=== PATIENT | male | born 1980 | race Caucasian/White ===

== ENCOUNTER 2024-11-20 16:28 | Emergency (ER) | payer BC, SELFPAY ==
[2024-11-20 16:29] VITALS: BMI 25.9
[2024-11-20 16:38] VITALS: BP 142/91
[2024-11-20 17:00] LABS: % Basophils 0.5 % (0-2); % Eosinophils 1.6 % (0-6); % Immature Granulocytes 0.2 % (0-0.5); % Lymphocytes 13.8 % (20.5-51.1); % Monocytes 9.3 % (1.7-9.3); % Neutrophils 74.6 % (42.2-75.2); Absolute Eosinophils 0.1 10^3/uL (0-0.7); Absolute Lymphocytes 0.8 10^3/uL (1.2-3.4); Absolute Monocytes 0.5 10^3/uL (0.1-0.6); Absolute Neutrophils 4.3 10^3/uL (1.4-6.5); Hematocrit 44.2 % (39.0-52.0); Hemoglobin 14.6 g/dL (13.0-18.0); Mean Corpuscular Hgb 29.3 pg (27.0-31.0); Mean Corpuscular Volume 88.6 fL (80.0-94.0); Mean Platelet Volume 9.8 fL (7.4-10.4); Nucleated Red Blood Cells % 0 % (-); Platelet Count 241 10^3/uL (130-400); Red Blood Cell Count 4.99 10^6/uL (4.70-6.10); Red Cell Dist. Width 12.7 % (11.5-14.5); White Blood Cell Count 5.7 10^3/uL (4.8-10.8)
[2024-11-20 17:00] LABS: Urine Albumin Trace (Neg - Trace); Urine Bilirubin Negative (Negative); Urine Character Clear (Clear); Urine Color Yellow; Urine Glucose Negative (Negative); Urine Ketone Negative (Negative); Urine Leukocyte Negative (Negative); Urine Nitrite Negative (Negative); Urine Occult Blood 4+ (Negative); Urine Specific Gravity 1.025 (<1.030); Urine Urobilinogen Negative (Neg - 1+)
[2024-11-20 17:10] LABS: Urine Mucus Moderate; Urine Squamous Cell 0-2 /LPF (Few)
[2024-11-20 17:11] LABS: Urine Bacteria Few (Negative); Urine Red Blood Cell 50-60 /HPF (0-2); Urine White Cell 0-2 /HPF (0-5)
[2024-11-20 17:16] LABS: ALT (SGPT) 27 U/L (0-50); AST (SGOT) 27 U/L (17-59); Albumin 4.3 g/dl (3.5-5.0); Alkaline Phosphatase 76 U/L (38-126); Blood Urea Nitrogen 24 mg/dl (9-20); Calcium 9.2 mg/dl (8.4-10.2); Carbon Dioxide 27 mmol/L (22-30); Chloride 102 mmol/L (98-107); Glucose 133 mg/dl (70-99); Lipase 48 U/L (23-300); Potassium 5.2 mmol/L (3.5-5.1); Sodium 138 mmol/L (135-145); Total Bilirubin 0.5 mg/dl (0.2-1.3); Total Protein 6.8 g/dl (6.3-8.2); eGFR > 60.00
[2024-11-20 18:14] VITALS: BP 126/80
[2024-11-20 20:17] VITALS: BP 139/78
--- NOTE | 2024-11-20 20:45 | ED.GENMED ---
History of Present Illness
General
Chief Complaint: Abdominal Pain
Source: patient
Exam Limitations: none
Time Seen by Provider: 11/20/24 17:58
Nursing documentation reviewed up to this point in time: agreed with
History of Present Illness
History of Present Illness:
Patient to ED with complaint of abdominal pain. States pain started suddently this afternoon. Reports right abd. pain with radiation to groin. States pain came in waves and increasing intensity. Noted difficulty urinating. Brought self to ED
but states pain has since subsided. Denies fever/chills. +nausea, no vomiting or diarrhea. No prior history of saem.
Past History
Past History
ED Past Medical History: IDDM
ED Past Surgical History: Other (Myringotomy tubes/wisdom teeth)
Social History
Tobacco: Non-smoker
Personal:
Living: with family
Employment: Employed
Family History
Family History: Other (Noncontributory)
Review of Systems
Review of Systems
Allergies reviewed?: Yes
All Other Systems: ROS reviewed and negative except as documented in HPI and ROS
Constitutional: Reports no symptoms
EENT: Reports no symptoms
Respiratory: Reports no symptoms
Cardiac: Reports no symptoms
ABD/GI: Reports abdominal pain
: Reports difficulty voiding
Musculoskeletal: Reports no symptoms
Skin: Reports no symptoms
Neurological: Reports no symptoms
Psychiatric: Reports no symptoms
Phy Exam
General Physical Exam
General Presentation: well appearing and no apparent distress
General age: appears stated age
General Skin: warm and dry
General Habitus: normal
General Mental: alert
Cardiovascular Exam
Cardiovascular Exam: regular rate/rhythm
Gastrointestinal Exam
Gastrointestinal Exam: normal bowel sounds, soft, no organomegaly, no pulsatile mass, non distended and no cva tenderness
Palpation: right upper quadrant: Minimal tenderness and right lower quadrant: Minimal tenderness
Musculoskeletal Exam
Musculoskeletal Exam: full ROM and neuro vasc intact
Skin Exam
Skin Exam: normal color, warm/dry and no rash
Psychiatric Exam
Psychiatric Exam: normal mood/affect
Course
Orders/Labs/Results
Orders:
Orders
11/20/24 16:51
Complete Blood Count/With Diff Urgent
Comprehensive Metabolic Panel Urgent
Lipase Urgent
11/20/24 16:53
Urinalysis Reflex To Culture Urgent
Date Specimen was Collected: 11/20/24
Time Specimen was Collected: 16:42
Urine Microscopic Reflex Cult Urgent
11/20/24 18:31
CT Abd/pel Without Iv Or Oral Urgent
Comment:
Reason For Exam: right flank pain
Abnormal Lab Results
11/20/24 11/20/24
16:51 16:53
Absolute Lymphs (auto) 0.8 L 10^3/uL
(1.2-3.4)
Lymphocytes % 13.8 L %
(20.5-51.1)
Potassium 5.2 H mmol/L
(3.5-5.1)
BUN 24 H mg/dl
(9-20)
Glucose 133 H mg/dl
(70-99)
Ur Occult Blood Reflex 4+ A
(Negative)
Urine RBC 50-60 A /HPF
(0-2)
Urine Bacteria (Reflex) Few A
(Negative)
11/20/24 16:51
11/20/24 16:51
Vital Signs
Initial and Last Documented VS:
Initial Vital Signs
Temp Pulse Resp BP Pulse Ox
97.8 F 69 18 142/91 100
11/20/24 16:38 11/20/24 16:38 11/20/24 16:38 11/20/24 16:38 11/20/24 16:38
Last Documented Vital Signs
Temp Pulse Resp BP Pulse Ox
98.4 F 81 20 139/78 99
11/20/24 18:10 11/20/24 18:10 11/20/24 18:10 11/20/24 20:17 11/20/24 20:17
*Radiology
Radiology exam reviewed: radiology read reviewed
*Pulse Oximetry
Patient hypoxic: no
*Critical Care Note
Total Time (30-74mins, 75-104mins- exclusive of procedures): Not Applicable
Update Note
Update Note:
Patient to ED with complaint of right abd. pain radiating to groin. Pain came in waves with increasing intensity. Symptoms resolved with out intervention. Labs, CT reviewed, no concerning findings. +4microscopic blood in urine concerning for
possible renal colic. No prior history. No evidence of UTI. Now urinating without difficulty. Discussed s/s of stones. Will discharge home and he will follow up with PCP on saturday. Will retun to ED for return of symptoms or any furthe concerns.
ED Attending Note
-
Portions of this chart may have been created with voice recognition software.� Occasional wrong word or��sound alike� substitutions may have occurred due to the inherent limitations of voice recognition software.
Discharge Plan
Departure
Patient Disposition: Home (Routine Discharge)
Date of Disposition: 11/20/24
Time of Disposition: 20:45
Patient with high blood pressure during this ER visit?: No
Condition: Good
Covid-19: Not Applicable
Discharge Problem:
Abdominal pain
Instructions: Abdominal Pain
Prescriptions:
No Action
sertraline 50 mg tablet
50 mg PO DAILY
rosuvastatin 5 mg tablet
5 mg PO DAILY
Patient Insulin Pump
30 - 40 unit continuous IV infusion .CONTINUOUS
Patient Comments:
patien thas insulin and uses novolog vials and the pump gets filled ever 3 days
doxycycline hyclate 100 mg Capsule
100 mg PO Q12 14 Days Qty: 28 0RF
cephalexin 500 mg Capsule
500 mg PO QID 14 Days Qty: 56 0RF
ketorolac 10 mg tablet
10 mg PO Q8H PRN (Reason: pain) 5 Days Qty: 15 0RF
Referrals:
Xander Connors MD [Family Provider] - Follow up in 2-3 days
Activity Restrictions/Additional Instructions:
Return to the emergency department immediately for any changes in/worsening of your symptoms.
Interventions
Interventions:
*Risk Screen - Suicide Last Done: 11/20/24 16:38
*General Assessment Last Done: 11/20/24 16:38
*Neglect/Abuse Screening Last Done: 11/20/24 16:38
*ED COVID-19 Vaccine History Last Done: 11/20/24 18:06
MS-Fysfuh-Uzuillgbms Assessment Last Done: 11/20/24 18:06
Discharge Date and Time
Print Language: CONGOLESE
== END 2024-11-20 20:51 | disposition home or self-care (01) ==
LOC: EMR 16:28
PROVIDERS: Emergency Medicine; EMERGENCY PHYSICIAN Student in an Organized Health Care Education/Training Program; FAMILY PHYSICIAN Family Medicine
DX: R10.31 Right lower quadrant pain (principal); E11.9 Type 2 diabetes mellitus without complications; Z79.4 Long term (current) use of insulin
CPT/HCPCS: 99284; 74176; 80053; 81003; 81015; 83690; 85025

== ENCOUNTER → 2025-06-17 08:54 | Outpatient (REF) | payer SELFPAY | LOC: HWRAD 08:54 | PROVIDERS: ATTENDING PHYSICIAN Internal Medicine Endocrinology, Diabetes & Metabolism; FAMILY PHYSICIAN Family Medicine | DX: E78.2 Mixed hyperlipidemia (principal) | CPT/HCPCS: 75571 ==

== ENCOUNTER → 2025-09-15 09:06 | Outpatient (REF) | payer BC, SELFPAY | LOC: RCS 09:06 | PROVIDERS: ATTENDING PHYSICIAN Internal Medicine Cardiovascular Disease; FAMILY PHYSICIAN Family Medicine | DX: Z86.79 Personal history of other diseases of the circulatory system (principal) | CPT/HCPCS: 93017; 93350 ==